=== PATIENT | female | born 1975 | race Caucasian/White ===

== ENCOUNTER → 2025-03-31 07:59 | Outpatient (REF) | payer BC, SELFPAY | LOC: HWEVLT 07:59 | PROVIDERS: ATTENDING PHYSICIAN Radiology Diagnostic Radiology | DX: I83.891 Varicose veins of right lower extremity with other complications (principal) | CPT/HCPCS: 93971 ==

== ENCOUNTER → 2025-04-27 08:07 | Outpatient (REF) | payer BC, SELFPAY | LOC: HWEVLT 08:07 | PROVIDERS: ATTENDING PHYSICIAN Radiology Vascular & Interventional Radiology | DX: I83.891 Varicose veins of right lower extremity with other complications (principal) | CPT/HCPCS: 36478 ==

== ENCOUNTER → 2025-05-10 08:02 | Outpatient (REF) | payer BC, SELFPAY | LOC: HWEVLT 08:02 | PROVIDERS: ATTENDING PHYSICIAN Radiology Vascular & Interventional Radiology | DX: I83.891 Varicose veins of right lower extremity with other complications (principal) | CPT/HCPCS: 93971 ==